=== PATIENT | male | born 1995 | race Caucasian/White ===

== ENCOUNTER 2017-11-19 03:31 | Emergency (ER) | payer OTHER, BC ==
[2017-11-19] MEDS ORDERED: Ketorolac 0.5% Ophth Soln 5 ML Bottle EYEBOTH ONE (04:05)
[2017-11-19] MEDS ORDERED: Acetaminophen/oxyCODONE 325-5 MG Tab PO ONE (04:06)
[2017-11-19] MEDS ORDERED: Ciprofloxacin 0.3% Ophth Soln 2.5 ML Bottle EYEBOTH ONE (04:06)
[2017-11-19] MEDS ORDERED: diphenhydrAMINE 50 MG Cap PO ONE (04:07)
--- NOTE | 2017-11-19 04:12 | EDM.PDOC ---
ED HPI GENERAL MEDICAL PROBLEM - General Chief Complaint: ENT Problem Stated Complaint: EYES BURN Time Seen by Provider: 11/19/17 03:45 Source of Information: Reports: Patient, Family ( both parents. ) - History of Present Illness INITIAL COMMENTS - FREE TEXT/NARRATIVE: 21-year-old male presents to the ED with severe bilateral eye pain. Patient states that his eyes been burning and he's not been able to go to sleep tonight. 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 He can hardly keep his eyes open at all due to severe photophobia and excessive tearing. Both eyes seem to be affected. As far she can ascertain his exposure was at about 1500 hrs. yesterday and was only one time. Onset: Sudden Onset Date: 11/18/17 (Started to have symptoms about 2100 hrs. last night.) Duration: Hour(s): Location: Reports: Face (Both eyes are severely painful) Quality: Reports: Burning, Sharp, Stabbing Severity: Severe Improves with: Reports: None (Pain is 10 out of 10) Worsens with: Reports: Other Context: Reports: Trauma (Exposure to ultraviolet radiation and chemistry lab.) . Denies: Activity (Exposure to light), Exercise, Lifting, Sick Contact Associated Symptoms: Reports: No Other Symptoms Treatments MACHINE [employer]ER: Reports: Other (see below) (9.) Bilateral Eye Pain Score (Numeric/FACES): 4 - Related Data Allergies Allergy/AdvReac Type Severity Reaction Status Date / Time No Known Allergies Allergy Verified 11/19/17 03:43 Home Meds: Home Meds . [No Known Home Meds] 11/19/17 [History] Past Medical History - Past Health History Medical/Surgical History: Denies Medical/Surgical History Social & Family History - Family History Family Medical History: Noncontributory - Tobacco Use Smoking Status *Q: Never Smoker - Recreational Drug Use Recreational Drug Use: No - Living Situation & Occupation Living situation: Reports: with Family Occupation: Student ED ROS ENT - Review of Systems Review Of Systems: See Below Constitutional: Reports: No Symptoms HEENT: Reports: No Symptoms Respiratory: Reports: No Symptoms Endocrine: Reports: No Symptoms GI/Abdominal: Reports: No Symptoms : Reports: No Symptoms Musculoskeletal: Reports: No Symptoms Skin: Reports: No Symptoms Neurological: Reports: No Symptoms Psychiatric: Reports: No Symptoms Hematologic/Lymphatic: Reports: No Symptoms Immunologic: Reports: No Symptoms ED EXAM, ENT - Physical Exam Exam: See Below Exam Limited By: No Limitations General Appearance: Alert, Moderate Distress (Both eyes appears swollen and is unable to open the middle due to severe pain. Was only open only able to open them after topical proparacaine application to both eyes.) Eye Exam: Bilateral Eye: Conjunctival Injection (Mild bilaterally.), Corneal Abrasion (Has bilateral pitting of the corneas on slit lamp examination with increased for seen uptake from ultraviolet radiation exposure. Left is slightly more affected than the right. There are no deep corneal abrasions.) Course - Vital Signs Last Recorded V/S: Last Vital Signs Temp 36.6 C 11/19/17 03:38 Pulse 82 11/19/17 03:38 Resp 16 11/19/17 03:38 BP 133/75 11/19/17 03:38 Pulse Ox 100 11/19/17 03:38 - Orders/Labs/Meds Meds: Medications Discontinued Medications Generic Name Dose Route Start Last Admin Trade Name Shayy PRN Reason Stop Dose Admin Ciprofloxacin 2.5 ml 11/19/17 04:06 11/19/17 04:15 Ciloxan 0.3% Ophth Soln EYEBOTH 11/19/17 04:07 2 drop ONETIME ONE Administration Diphenhydramine HCl 50 mg 11/19/17 04:07 11/19/17 04:17 Benadryl PO 11/19/17 04:08 50 mg ONETIME ONE Administration Ketorolac Tromethamine 2.5 ml 11/19/17 04:05 11/19/17 04:15 Acular 0.5% Ophth Soln EYEBOTH 11/19/17 04:06 2 drop ONETIME ONE Administration Oxycodone/Acetaminophen 2 tab 11/19/17 04:06 11/19/17 04:17 Percocet 325-5 Mg PO 11/19/17 04:07 2 tab ONETIME ONE Administration - Radiology Interpretation Free Text/Narrative:: 21-year-old male attends the ED with both parents complaining of severe pain in both eyes. History suggests he was exposed is exposed to ultraviolet radiation chemistry lab at the [employer] at about 1500 hrs. yesterday afternoon. Examination was done after we could anesthetize his eyes with topical proparacaine which gave him relief of pain. Slit-lamp exam confirms bilateral pitting of the corneas compatible with UV light exposure. The left cornea has 1 area of significant burn and will take a little bit longer to heal. Treatment will be ketorolac drops 2 drops to the each eye every 6 hours D for pain relief and Cipro antibiotic drops 2 drops each eye 3 times daily for the next 3 days to prevent secondary infection. He was given 2 Percocet 5/325 mg tablets and Benadryl 50 mg by mouth to allow pain relief and sleep overnight. Both eyes will be double patched overnight and actually remain on for next 24 hours. His eyes will be sensitive to light for another day but he will follow-up with power plant superintendent or return to the ED if any further problems occur or not completely back to normal in 36 hours time. Departure - Departure Time of Disposition: 04:07 Disposition: Home, Self-Care 01 Condition: Fair Clinical Impression: Ultraviolet keratitis of both eyes - Discharge Information Referrals: PCP,None [Primary Care Provider] - Forms: ED Department Discharge Additional Instructions: Evaluation in the emergency him tonight in regards to severe pain with excessive tearing in both eyes. This appears to been caused by ultraviolet light exposure at work place yesterday afternoon. Since like a welding flash burn. It causes a burning of the cornea bilaterally in the left is a little worse looking than the right. No permanent damage to the eyes will occur. Pain was relieved in the emergency room with topical proparacaine which is a numbing agent. Treatment at home is to use ketorolac drops 2 drops each eye every 6 hours as needed for the next 24 and possibly up to 36 hours to relieve pain. Also Cipro eyedrops 2 drops to each eye 3 times daily for 3 days to prevent secondary infection in the cornea. Eye patches to be worn for the next 24 hours to allow the eyes to heal. Eyes will be very sensitive to sunlight or bright light for a day or two after the patches are removed. If not completely back to normal in 36 hours he should be reviewed either to the ED or with power plant superintendent.
== END 2017-11-19 04:25 | disposition home or self-care (01) ==
LOC: JD.ED 03:31
DX: H16.8 Other keratitis (principal); W89.9XXA Exposure to unspecified man-made visible and ultraviolet light, initial encounter; Y92.89 Other specified places as the place of occurrence of the external cause
CPT/HCPCS: 99283; A9270